=== PATIENT | male | born 1940 | race Caucasian/White ===

== ENCOUNTER 2017-08-31 17:42 | Emergency (ER) | payer SELFPAY ==
[~2017-08-31] VITALS: Ht 182.9 cm; Wt 87.7 kg
[2017-08-31 17:48] VITALS: BP 156/94
== END 2017-08-31 21:20 | disposition left against medical advice (07) ==
LOC: EME 17:42
DX: H54.62 Unqualified visual loss, left eye, normal vision right eye (principal)
CPT/HCPCS: 99281; 99283